=== PATIENT | male | born 1955 | race Caucasian/White ===

== ENCOUNTER 2025-02-27 12:35 | Inpatient (IN) | payer MEDICARE ==
[~2025-02-27] VITALS: Ht 175.3 cm; Wt 87.3 kg
[2025-02-27] VITALS (15 sets, daily range): BP systolic 90–124; BP diastolic 39–69; PULSE 79–115; RESP 13–27; TEMP 99.5–100.9; O2SAT 91–97
[~2025-02-27 12:35] MED LIST: ASPIR 8181 MG PO; ATENOLOL25 MG PO; CO Q-10 100 MG1 EACH PO; FISH OIL 1,2001 EACH PO; GLUCOSAM-CHOND1 EACH PO; SERTRALINE HCL50 MG PO; SIMVASTATIN40 MG PO; VITAMIN C1000 MG PO
[2025-02-27] MEDS ORDERED: ONDANSETRON HCL 4 MG ORAL DISINTEGRATING TAB PO STA (13:03)
[2025-02-27 13:48] LABS: BILIRUBIN,URINE NEGATIVE (NEGATIVE); CLARITY,URINE CLOUDY (CLEAR); COLOR,URINE YELLOW (YELLOW); GLUCOSE, URINE NEGATIVE (NEGATIVE); KETONES,URINE NEGATIVE (NEGATIVE); LEUKOCYTE ESTERASE ,URINE MODERATE (NEGATIVE); NITRITE,URINE NEGATIVE (NEGATIVE); PH,URINE 5.5 (5 - 7); PROTEIN,URINE DIPSTICK 2+ (NEGATIVE); URINE UROBILINOGEN 0.2 mg/dL (0.2 - 1)
[2025-02-27 13:49] LABS: WBC,URINE (MAN) >50 /HPF (0-5)
[2025-02-27 13:50] LABS: BACTERIA,URINE MANY /HPF; EPITHELIAL CELLS,URINE RARE /LPF
[2025-02-27] MEDS ORDERED: ONDANSETRON HCL INJ 2MG/ML 2ML 2 MG/ML VIAL IV PRN (14:15)
[2025-02-27] MEDS: ONDANSETRON HCL INJ 2MG/ML 2ML 2 MG/ML VIAL IV STA (14:25)
[2025-02-27] MEDS: SODIUM CHLORIDE 0.9% 1000ML 1,000 ML IV STA ×2 (14:26→15:24)
[2025-02-27] MEDS: SODIUM CHLORIDE 0.9% 1000ML 1,000 ML IV SCH (14:26)
[2025-02-27] MEDS: KETOROLAC TROMETHAMINE 30 MG/ML VIAL IV STA (14:26)
[2025-02-27 14:29] LABS: BASOPHILS # (AUTO) 0.1 (0.0-0.1); BASOPHILS % 0.3 % (0.0-1.0); EOSINOPHILS % 0.1 % (0.0-6.0); HEMATOCRIT 41.4 % (38.2-49.6); HEMOGLOBIN 13.7 g/dL (14.0-18.0); LYMPHOCYTES # (AUTO) 0.6 (1.0-3.2); LYMPHOCYTES % 3.2 % (18.0-39.1); MEAN CORPUSCULAR HEMOGLOBIN 30.6 pg (28-32); MEAN CORPUSCULAR HGB CONC 33.1 g/dL (31-35); MEAN CORPUSCULAR VOLUME 92.4 fL (81-99); MONOCYTES # (AUTO) 1.1 (0.2-0.8); MONOCYTES % 5.9 % (4.4-11.3); NEUTROPHILS # (AUTO) 17.1 (2.1-6.9); NEUTROPHILS % 89.7 % (38.7-80.0); PLATELET COUNT 233 x10e3/uL (140-360); RED BLOOD COUNT 4.48 x10e6/uL (4.3-5.7); RED CELL DISTRIBUTION WIDTH 15.2 % (11.7-14.4); WHITE BLOOD COUNT 19.03 x10e3/uL (4.8-10.8)
[2025-02-27 14:55] LABS: STREPTOCOCCUS GRP A ANTIGEN NEGATIVE (NEGATIVE)
[2025-02-27 14:59] LABS: ALBUMIN 3.5 g/dL (3.5-5.0); ALBUMIN/GLOBULIN RATIO 0.8 (0.8-2.0); ANION GAP 17.1 mmol/L (8-16); BILIRUBIN,TOTAL 0.6 mg/dL (0.2-1.2); CALCIUM 9.2 mg/dL (8.4-10.2); CREATININE, SERUM 1.34 mg/dL (0.72-1.25); INFLUENZA A AG NEGATIVE (NEGATIVE); INFLUENZA B AG NEGATIVE (NEGATIVE); POTASSIUM 4.1 mmol/L (3.5-5.1); TOTAL PROTEIN 7.8 g/dL (6.5-8.1)
[2025-02-27 15:00] LABS: CORONAVIRUS COVID-19 AG NEGATIVE (NEGATIVE)
[2025-02-27] MEDS: ACETAMINOPHEN 325 MG TAB PO STA (15:18)
[2025-02-27] MEDS ORDERED: SODIUM BICARBONATE 8.4% INJ 50 ML SYR IV STA (15:34)
[2025-02-27] MEDS ORDERED: SODIUM CHLORIDE 0.9% 500ML 500 ML ONE (16:52)
[2025-02-27] MEDS ORDERED: IOPAMIDOL 370 MG/ML 100 ML INFUS..BTL INJ ONE (16:52)
[2025-02-27] MEDS ORDERED: MIDAZOLAM HCL 2 MG/2 ML VIAL ONE (17:07)
[2025-02-27] MEDS ORDERED: FENTANYL CITRATE/PF 100MCG/2 ML INJ ONE (17:08)
[2025-02-27] MEDS ORDERED: SODIUM CHLORIDE 0.9% 250ML 250 ML ONE (17:08)
[2025-02-27 17:11] LABS: INR 1.11; PARTIAL THROMBOPLASTIN TIME 36.8 seconds (23.8-35.5)
[2025-02-27] MEDS: Morphine 4mg INJECTION 4 MG/ML INJ IV PRN (21:22)
[2025-02-27] MEDS: ACETAMINOPHEN 325 MG TAB PO PRN (22:04)
[2025-02-28] VITALS (39 sets, daily range): BP systolic 82–154; BP diastolic 45–98; PULSE 66–92; RESP 16–27; TEMP 98–100.9; O2SAT 90–100
[2025-02-28 07:00] LABS: BASOPHILS % 0.2 % (0.0-1.0); EOSINOPHILS % 0.2 % (0.0-6.0); HEMATOCRIT 35.9 % (38.2-49.6); LYMPHOCYTES # (AUTO) 0.3 (1.0-3.2); LYMPHOCYTES % 2.4 % (18.0-39.1); MEAN CORPUSCULAR HEMOGLOBIN 30.6 pg (28-32); MEAN CORPUSCULAR HGB CONC 33.4 g/dL (31-35); MEAN CORPUSCULAR VOLUME 91.6 fL (81-99); MONOCYTES # (AUTO) 0.8 (0.2-0.8); MONOCYTES % 6.4 % (4.4-11.3); NEUTROPHILS # (AUTO) 11.7 (2.1-6.9); NEUTROPHILS % 90.5 % (38.7-80.0); PLATELET COUNT 186 x10e3/uL (140-360); RED BLOOD COUNT 3.92 x10e6/uL (4.3-5.7); RED CELL DISTRIBUTION WIDTH 15.3 % (11.7-14.4); WHITE BLOOD COUNT 12.96 x10e3/uL (4.8-10.8)
[2025-02-28 07:35] LABS: ALBUMIN 2.7 g/dL (3.5-5.0); ALBUMIN/GLOBULIN RATIO 0.8 (0.8-2.0); ANION GAP 13.7 mmol/L (8-16); BILIRUBIN,TOTAL 0.5 mg/dL (0.2-1.2); CALCIUM 8.3 mg/dL (8.4-10.2); CREATININE, SERUM 1.04 mg/dL (0.72-1.25); POTASSIUM 3.7 mmol/L (3.5-5.1); TOTAL PROTEIN 6.3 g/dL (6.5-8.1)
[2025-02-28] MEDS ORDERED: METOPROLOL TARTRATE INJ 1 MG/ML VIAL IV PRN (10:30)
[2025-02-28] MEDS ORDERED: ALBUTEROL/IPRATROPIUM 3 ML NEB NEB PRN (10:30)
[2025-02-28] MEDS: ENOXAPARIN SOD INJ 40 MG/0.4 ML SYR SC SCH (16:01)
[2025-02-28] MEDS: PSYLLIUM 6GM PACKET PO SCH (16:01)
[2025-02-28] MEDS: MELATONIN 3 MG TAB PO PRN (21:00)
[2025-02-28] MEDS: FAMOTIDINE 20 MG TAB PO SCH (21:55)
[2025-03-01] VITALS (19 sets, daily range): BP systolic 100–139; BP diastolic 66–78; PULSE 65–77; RESP 16–29; TEMP 98–99.4; O2SAT 92–98
[2025-03-01 05:32] LABS: ABG HCO3 25 mmol/L (22-26); ABG PCO2 42 mmHg (35-45); ABG PH 7.38 (7.35-7.45); ABG PO2 83 mmHg (80-105); ABG TCO2 26
[2025-03-01 06:31] LABS: BASOPHILS % 0.2 % (0.0-1.0); EOSINOPHILS # (AUTO) 0.2 (0.0-0.4); EOSINOPHILS % 2.4 % (0.0-6.0); HEMATOCRIT 33.7 % (38.2-49.6); HEMOGLOBIN 11.5 g/dL (14.0-18.0); LYMPHOCYTES # (AUTO) 0.9 (1.0-3.2); LYMPHOCYTES % 9.2 % (18.0-39.1); MEAN CORPUSCULAR HEMOGLOBIN 30.7 pg (28-32); MEAN CORPUSCULAR HGB CONC 34.1 g/dL (31-35); MEAN CORPUSCULAR VOLUME 89.9 fL (81-99); MONOCYTES # (AUTO) 0.9 (0.2-0.8); NEUTROPHILS # (AUTO) 7.6 (2.1-6.9); NEUTROPHILS % 78.6 % (38.7-80.0); PLATELET COUNT 208 x10e3/uL (140-360); RED BLOOD COUNT 3.75 x10e6/uL (4.3-5.7); RED CELL DISTRIBUTION WIDTH 15.4 % (11.7-14.4); WHITE BLOOD COUNT 9.73 x10e3/uL (4.8-10.8)
[2025-03-01 06:57] LABS: ANION GAP 12.5 mmol/L (8-16); CALCIUM 8.4 mg/dL (8.4-10.2); CREATININE, SERUM 0.85 mg/dL (0.72-1.25); POTASSIUM 3.5 mmol/L (3.5-5.1)
[2025-03-01] MEDS: CALCIUM CARBONATE 500 MG CHEWABLE TABS PO SCH (07:48)
[2025-03-01 09:13] LABS: CALCIUM 7.8 mg/dL (8.6-10.2)
[2025-03-01] MEDS ORDERED: ALLOPURINOL300 MG PO (19:03)
[2025-03-01] MEDS ORDERED: [UNRECOGNIZED DRUG - OTHER] (19:03)
[2025-03-01] MEDS ORDERED: COQ1050 MG PEG (19:03)
[2025-03-01] MEDS ORDERED: FLECAINIDE ACET50 MG PO (19:03)
[2025-03-01] MEDS ORDERED: ELIQUIS5 MG PO (19:03)
[2025-03-01] MEDS ORDERED: MULTI-VITAMIN1 EACH PO (19:03)
[2025-03-01] MEDS ORDERED: LOSARTAN POTASS25 MG PO (19:04)
[2025-03-01] MEDS ORDERED: TADALAFIL5 MG PO (19:04)
[2025-03-02 04:00] VITALS: BP 126/80; PULSE 57; RESP 20; TEMP 98.1; O2SAT 97
[2025-03-02 05:23] LABS: BASOPHILS % 0.4 % (0.0-1.0); EOSINOPHILS # (AUTO) 0.5 (0.0-0.4); EOSINOPHILS % 5.7 % (0.0-6.0); HEMATOCRIT 31.5 % (38.2-49.6); HEMOGLOBIN 10.5 g/dL (14.0-18.0); LYMPHOCYTES # (AUTO) 1.1 (1.0-3.2); LYMPHOCYTES % 14.2 % (18.0-39.1); MEAN CORPUSCULAR HEMOGLOBIN 30.3 pg (28-32); MEAN CORPUSCULAR HGB CONC 33.3 g/dL (31-35); MEAN CORPUSCULAR VOLUME 90.8 fL (81-99); MONOCYTES % 12.6 % (4.4-11.3); NEUTROPHILS # (AUTO) 5.3 (2.1-6.9); NEUTROPHILS % 66.3 % (38.7-80.0); PLATELET COUNT 217 x10e3/uL (140-360); RED BLOOD COUNT 3.47 x10e6/uL (4.3-5.7); RED CELL DISTRIBUTION WIDTH 15.1 % (11.7-14.4); WHITE BLOOD COUNT 7.91 x10e3/uL (4.8-10.8)
[2025-03-02 06:01] LABS: ANION GAP 12.2 mmol/L (8-16); CALCIUM 8.4 mg/dL (8.4-10.2); CREATININE, SERUM 0.79 mg/dL (0.72-1.25); POTASSIUM 3.2 mmol/L (3.5-5.1)
[2025-03-02 07:37] VITALS: BP 130/79; PULSE 66; RESP 20; TEMP 98.1; O2SAT 100
[2025-03-02 09:00] VITALS: BP 130/79; PULSE 66; RESP 20; TEMP 98.1; O2SAT 100
[2025-03-02] MEDS ORDERED: Psyllium PO (11:11)
[2025-03-02] MEDS ORDERED: CIPRO500 MG PO (11:11)
[2025-03-02 11:19] VITALS: BP 136/82; PULSE 63; RESP 20; TEMP 98.1; O2SAT 99
[2025-03-06 09:10] LABS: METANEPHRINE, TOTAL 24h URINE 174 ug/24 hr (58-276); NORMETANEPHRINE, 24h URINE 453 ug/24 hr (156-729)
[2025-03-06 14:42] LABS: METANEPHRINE, 24h URINE 58 ug/L (Undefined); VANILLYLMANDELIC ACID URINE 1.4 mg/L (Undefined); VANILLYLMANDELIC ACID24h 4.2 mg/24 hr (0.0-7.5)
[2025-03-06 16:40] LABS: CORT,F,24HR URINE 297; CORTISOL,F,UR 99
[2025-03-06 16:42] LABS: NOREPINEPHRINE, 24H URINE <45
[2025-03-06 16:43] LABS: DOPAMINE, 24H URINE 153; DOPAMINE,URINE 51
[2025-03-06 16:48] LABS: EPINEPHRINE,URINE 24 HR <9; NOREPINEPHRINE,URINE <15
== END 2025-03-02 12:20 | disposition home or self-care (01) | DRG 872 ==
LOC: ER 12:52 → ERHOLD 14:03 → ICU 20:04 → MED/SURG2 03-01 16:40
PROVIDERS: ADMIT Internal Medicine; ATTEND Internal Medicine
PROC: 0T9030Z Drainage of Right Kidney with Drainage Device, Percutaneous Approach (ICD-10-PCS; principal; 2025-02-27)
PROC: 3E03329 Introduction of Other Anti-infective into Peripheral Vein, Percutaneous Approach (ICD-10-PCS; 2025-02-27)
PROC: 4A033R1 Measurement of Arterial Saturation, Peripheral, Percutaneous Approach (ICD-10-PCS; 2025-02-28)
DX: A41.52 Sepsis due to Pseudomonas (principal); E87.20 Acidosis, unspecified; N13.6 Pyonephrosis; N17.9 Acute kidney failure, unspecified; R65.20 Severe sepsis without septic shock; E86.0 Dehydration; N20.0 Calculus of kidney; E27.8 Other specified disorders of adrenal gland; K57.30 Diverticulosis of large intestine without perforation or abscess without bleeding; D64.9 Anemia, unspecified; I48.91 Unspecified atrial fibrillation; Z79.01 Long term (current) use of anticoagulants; G47.30 Sleep apnea, unspecified; Z11.52 Encounter for screening for COVID-19; Z79.899 Other long term (current) drug therapy
CPT/HCPCS: 36415; 50432; 74176; 74470; 76942; 80048; 80053; 81001; 82384; 82530; 82805; 83518; 83605; 83690; 83835; 83970; 84585; 85025; 85610; 85730; 87040; 87070; 87086; 87186; 94799; 99152; 99153; 99252; 99284; J1650; J1885; J2250; J2270; J2405; J2543; J7030; J7040; J7050; Q9967

== ENCOUNTER → 2025-07-19 | Day surgery (SDC) | payer MEDICARE ==
[2025-07-18 13:05] LABS: BASOPHILS % 0.4 % (0.0-1.0); EOSINOPHILS % 1.9 % (0.0-6.0); LYMPHOCYTES % 19.3 % (18.0-39.1); MONOCYTES % 7.0 % (4.4-11.3); NEUTROPHILS % 71.3 % (38.7-80.0); RED CELL DISTRIBUTION WIDTH 14.3 % (11.7-14.4)
[2025-07-18 13:33] LABS: EST GLOMERULAR FILTRATION RATE 88.0 ML/MIN (>=60)
[~2025-07-19] MED LIST changes: +ALLOPURINOL300 MG PO; +CIPRO500 MG PO; +COQ1050 MG PEG; +ELIQUIS5 MG PO; +EPHEDRINE SULFATE INJ 50 MG/ML VIAL ONE; +FENTANYL CITRATE/PF 100MCG/2 ML INJ ONE; +FLECAINIDE ACET50 MG PO; +LIDOCAINE HCL 2% LOCAL INJ 5 ML SDV VIAL INJ ONE; +LOSARTAN POTASS25 MG PO; +MIDAZOLAM HCL 2 MG/2 ML VIAL ONE; +MULTI-VITAMIN1 EACH PO; +ONDANSETRON HCL INJ 2MG/ML 2ML 2 MG/ML VIAL ONE; +PHENYLEPHRINE HCL 1% 10 MG/ML VIAL ONE; +PROPOFOL IV EMULSION 10 MG/ML 20 ML VIAL ONE; +PROSTATE CONTR1 EACH; +Psyllium PO; +TADALAFIL5 MG PO; +[UNRECOGNIZED DRUG - OTHER]
[2025-07-19] MEDS: SODIUM CHLORIDE 0.9% 1000ML 1,000 ML ONE (07:29)
[2025-07-19] MEDS: GENTAMICIN 80MG/NS 100 ML 200 ML IV ONE (07:29)
[2025-07-19] MEDS: CEFTRIAXONE 1 GM VIAL ONE (07:29)
[2025-07-19] MEDS: PHENAZOPYRIDINE HCL 100 MG TAB ONE (11:25)
[2025-07-19 11:55] VITALS: BP 127/87; PULSE 99; RESP 17; O2SAT 98
== END | disposition home or self-care (01) ==
LOC: OR 06:06
PROVIDERS: ATTEND Urology
DX: N20.1 Calculus of ureter (principal); N20.0 Calculus of kidney; Z46.6 Encounter for fitting and adjustment of urinary device; G47.33 Obstructive sleep apnea (adult) (pediatric); I48.91 Unspecified atrial fibrillation; I10 Essential (primary) hypertension; E78.5 Hyperlipidemia, unspecified; Z01.810 Encounter for preprocedural cardiovascular examination; Z01.812 Encounter for preprocedural laboratory examination; Z01.818 Encounter for other preprocedural examination; Z79.02 Long term (current) use of antithrombotics/antiplatelets; Z79.899 Other long term (current) drug therapy; Z85.46 Personal history of malignant neoplasm of prostate
CPT/HCPCS: 36415; 52353; 74018; 74420; 80048; 84550; 85025; 87086; 87186; 88300; 93005; C1769; J0696; J1580; J2003; J2250; J2371; J2405; J2704; J3010; J7030